=== PATIENT | female | born 1960 | race Caucasian/White ===

== ENCOUNTER 2019-01-12 06:58 | Day surgery (SDC) | payer MEDICAID, OTHER ==
[2019-01-12] MEDS ORDERED: Midazolam 1 MG/ML 2 ML SDV ONE (07:11)
[2019-01-12] MEDS ORDERED: Propofol 200 MG/20 ML SDV ONE (07:11)
[2019-01-12] MEDS ORDERED: fentaNYL 100 MCG/2 ML SDV ONE (07:11)
[2019-01-12] MEDS ORDERED: Lactated Ringers 1,000 ML IV SCH (07:15)
[2019-01-12] MEDS ORDERED: Ibuprofen 600 MG Tab PO ONE (09:55)
--- NOTE | 2019-01-12 15:30 | OR ---
DATE OF PROCEDURE: 01/12/2019 SURGEON: Saroj Bustos MD PREOPERATIVE DIAGNOSIS: Strong family history of colon cancer in mother and father. POSTOPERATIVE DIAGNOSES: Diverticulosis, strong family history of colon cancer in mother and father. PROCEDURE: Colonoscopy to the cecum. ANESTHESIA: IV anesthesia with monitored anesthesia care. INDICATION: This 58-year-old white female is referred for a colonoscopy because of a strong family history of colon cancer, both her mother and father had colon cancer. She says her last colonoscopic exam was done 5 years ago. I counseled her for the procedure, including risks and alternatives, and she gave her informed consent to proceed. PROCEDURE IN DETAIL: The patient was placed in the left lateral decubitus position. IV anesthesia was administered by the Anesthesia Service. Time-out was held. A rectal exam was performed, which was unremarkable. The flexible video Olympus colonoscope was introduced through her anus, up her rectum, out her colon all the way to the cecum. En route, we saw multiple both right and left-sided diverticula. There was no bleeding or inflammation associated with any of them. Once the cecum was reached, the scope was slowly withdrawn, examining the mucosa throughout. No additional mucosal abnormalities were noted. The scope was retroflexed in the rectum with the distal rectum appearing unremarkable. The scope was straightened and removed. She tolerated the procedure well. Saroj Bustos MD /[id number]
== END 2019-01-12 10:15 | disposition home or self-care (01) ==
LOC: JP.SDS 06:58
PROVIDERS: ATTEND Surgery
DX: Z12.11 Encounter for screening for malignant neoplasm of colon (principal); K57.30 Diverticulosis of large intestine without perforation or abscess without bleeding; K21.9 Gastro-esophageal reflux disease without esophagitis; E78.5 Hyperlipidemia, unspecified; Z80.0 Family history of malignant neoplasm of digestive organs
CPT/HCPCS: A9270-GY; J2250; J2704; J3010; J7120

== ENCOUNTER 2024-11-06 07:21 | Day surgery (SDC) | payer MEDICARE, OTHER ==
[2024-11-06] MEDS ORDERED: Propofol 200 MG/20 ML SDV ONE (07:55)
[2024-11-06] MEDS ORDERED: fentaNYL 50 MCG/ML SDV ONE (07:55)
[2024-11-06] MEDS ORDERED: Midazolam 1 MG/ML 2 ML SDV ONE (07:55)
[2024-11-06] MEDS: Lactated Ringers 1,000 ML IV SCH (08:05)
== END 2024-11-06 10:24 | disposition home or self-care (01) ==
LOC: JP.SDS 07:21
PROVIDERS: ATTEND Surgery
DX: Z12.11 Encounter for screening for malignant neoplasm of colon (principal); K57.30 Diverticulosis of large intestine without perforation or abscess without bleeding; E78.5 Hyperlipidemia, unspecified; Z80.0 Family history of malignant neoplasm of digestive organs
CPT/HCPCS: G0105; J2250; J2704; J3010; J7120